=== PATIENT | male | born 1980 | race Caucasian/White ===

== ENCOUNTER 2017-10-27 17:46 | Emergency (ER) | payer MEDICAID ==
[~2017-10-27] VITALS: Ht 182.9 cm; Wt 100.0 kg
[2017-10-27] MEDS ORDERED: PROPARACAINE/FLUORESCEIN SOD 0.5-0.25% 0.5 ML OPHTHALMIC SOLUTION OD ONE (19:15)
[2017-10-27] MEDS ORDERED: GENTAMICIN SULFATE 0.3% 3.5 GM OPHTHALMIC OINTMENT OD ONE (19:30)
[2017-10-27 20:16] VITALS: BP 140/80
== END 2017-10-27 20:18 | disposition home or self-care (01) ==
LOC: EMS 17:47
DX: T15.91XA Foreign body on external eye, part unspecified, right eye, initial encounter (principal); S05.01XA Injury of conjunctiva and corneal abrasion without foreign body, right eye, initial encounter
CPT/HCPCS: 99283; Z7610

== ENCOUNTER 2018-05-24 19:17 | Emergency (ER) | payer MEDICAID ==
[~2018-05-24] VITALS: Ht 190.5 cm; Wt 115.9 kg
[2018-05-24] MEDS ORDERED: DiphenhydrAMINE HCL 25 MG CAPSULE PO ONE (20:15)
[2018-05-24] MEDS ORDERED: MethylPREDNISolone SOD SUCC 125 MG/2 ML VIAL IVP ONE (20:15)
[2018-05-24] MEDS ORDERED: FAMOTIDINE 10 MG/ML 2 ML VIAL IVP ONE (20:15)
[2018-05-24 20:23] VITALS: BP 134/78
== END 2018-05-24 20:54 | disposition home or self-care (01) ==
LOC: EMS 19:18
DX: T78.1XXA Other adverse food reactions, not elsewhere classified, initial encounter (principal); X58.XXXA Exposure to other specified factors, initial encounter
CPT/HCPCS: 96374; 96375; 99284; J2930; J3490